=== PATIENT | male | born 1950 | race Hispanic/Latino ===

== ENCOUNTER 2022-09-10 08:24 | Emergency (ER) | payer OTHER, MEDICARE ==
[~2022-09-10] VITALS: Ht 167.6 cm; Wt 71.7 kg
[2022-09-10] MEDS ORDERED: IOHEXOL-350 50ML VIAL IV ONE (09:08)
[2022-09-10 09:12] LABS: BASOPHILS % (AUTO) 0.3 % (0.0-5.0); EOSINOPHILS % (AUTO) 0.1 % (0.0-8.0); MEAN CORPUSCULAR HEMOGLOBIN 28.9 pg (27.0-33.0); MEAN CORPUSCULAR HGB CONC 33.1 g/dL (32.0-36.0); MEAN CORPUSCULAR VOLUME 87.3 fL (79-99); MONOCYTES % (AUTO) 9.8 % (3.0-13.0); NEUTROPHILS % (AUTO) 83.5 % (40.0-77.0); PLATELET COUNT (AUTO) 135 K/uL (130-400); RED BLOOD CELL COUNT(AUTO) 4.81 MIL/uL (4.50-6.20); RED CELL DISTRIBUTION WIDTH 12.8 % (11.0-15.5); WHITE BLOOD COUNT (AUTO) 12.8 K/uL (4.8-10.8)
[2022-09-10 09:21] LABS: CREATININE 0.9 mg/dL (0.5-1.5); POTASSIUM 4.1 mmol/L (3.5-5.1)
[2022-09-10 09:26] LABS: ALBUMIN 3.7 g/dL (3.5-5.0); TOTAL PROTEIN, SERUM 6.8 g/dL (6.0-8.3)
[2022-09-10] MEDS ORDERED: CLINDAMYCIN IVPB 600MG/50ML 50 ML IV SCH (12:00)
[2022-09-10] MEDS ORDERED: KETOROLAC 15MG/ML VIAL (15MG/ML) IV ONE (12:00)
[2022-09-10] MEDS ORDERED: DEXAMETHASONE SOD PHOSPHATE 4 MG/ML 1ML VIAL IVP ONE (12:00)
[2022-09-10] MEDS ORDERED: CLINDAMYCIN IVPB 900MG/50ML 50 ML IV SCH (13:00)
[2022-09-10] MEDS ORDERED: 0.9%NACL 1000ML 1,000 ML IV SCH (15:00)
[2022-09-10 15:17] VITALS: BP 146/63
== END 2022-09-10 17:38 | disposition short-term general hospital (02) ==
LOC: EDH 08:24
DX: J36 Peritonsillar abscess (principal); E78.00 Pure hypercholesterolemia, unspecified; I10 Essential (primary) hypertension; Z79.52 Long term (current) use of systemic steroids; Z20.822 Contact with and (suspected) exposure to COVID-19
CPT/HCPCS: 99285; 96365; 70491; 96361; 96375; 87635; 80053; 85025; 87880; 36415; J1100; C9803; J7030; J1885; J3490; Q9967